=== PATIENT | male | born 1965 | race Caucasian/White ===

== ENCOUNTER 2017-05-13 18:13 | Inpatient (IN) | payer OTHER, MEDICARE ==
[~2017-05-13] VITALS: Ht 188 cm; Wt 142.9 kg
[~2017-05-13 18:13] MED LIST: ASPIRIN325 PO; CENTRUM SILVER1 EAC2 PO; FARXIGA5 MG PO; HYDROCHLOROTHIA25 M1 PO; HYDROCODONE-AP1 EAC6 PO; LIPITOR 20 MG T20 M1 PO; LISINOPRIL20 MG PO; METFORMIN HCL500 MG PO; NAPROSYN500 M1 PO; PROPAFENONE 15150 MG PO; XARELTO20 MG PO
[2017-05-13 18:53] LABS: ABSOLUTE BASOPHILS 0.1 thou/uL (0.0-0.2); ABSOLUTE EOSINOPHILS 0.2 thou/uL (0.0-0.7); ABSOLUTE MONOCYTES 1.1 thou/uL (0.0-1.2); ABSOLUTE NEUTROPHILS 6.2 thou/uL (1.6-8.1); BASOPHILS 1.1 %; EOSINOPHILS 1.5 %; HEMATOCRIT 50.3 % (42.0-52.0); HEMOGLOBIN 16.6 gm/dL (14.0-18.0); LYMPHOCYTES 28.6 %; MCH 30.6 pg (26.0-34.0); MCHC 33.1 g/dL (28.0-37.0); MCV 92.5 fL (80.0-100.0); MONOCYTES 10.7 %; MPV 8.5 fl. (7.2-11.1); NUCLEATED RBCS 0 /100WBC; PLATELET COUNT* 241 thou/uL (150-400); POLYS 58.1 %; RBC 5.44 mil/uL (4.50-6.00); RDW-CV 13.9 % (10.5-14.5); WBC 10.6 thou/uL (4.0-11.0)
[2017-05-13 19:02] LABS: ANION GAP 7 mmol/L (7-16); BUN 14 mg/dL (7-18); CALCIUM 9.1 mg/dL (8.5-10.1); CHLORIDE 101 mmol/L (98-107); CO2 31 mmol/L (21-32); CREATININE 0.8 mg/dL (0.6-1.3); GLUCOSE 130 mg/dL (70-99); POTASSIUM 4.3 mmol/L (3.5-5.1); SODIUM 139 mmol/L (136-145)
[2017-05-13 19:03] LABS: APTT 30.1 Seconds (25.0-31.3); INR 1.1
[2017-05-13 19:18] LABS: ALBUMIN 3.7 g/dL (3.4-5.0); ALKALINE PHOSPHATASE 67 U/L (46-116); CK-MB MASS 2.4 ng/mL (<0.5-3.6); LIPASE 177 U/L (73-393); MAGNESIUM 1.8 mg/dL (1.8-2.4); NT-PRO BRAIN NAT PEPTIDE 90 pg/mL (<300); SGOT 20 U/L (15-37); SGPT 40 U/L (30-65); TOTAL BILIRUBIN 0.7 mg/dL (<0.1-1.0); TOTAL PROTEIN 7.6 g/dL (6.4-8.2); TROPONIN-I LEVEL <0.06 ng/mL (<0.06)
[2017-05-13 21:35] VITALS: BP 105/63
[2017-05-13 22:04] VITALS: BP 134/79
[2017-05-13 23:51] VITALS: BP 108/73
[2017-05-14 02:07] LABS: ABSOLUTE EOSINOPHILS 0.2 thou/uL (0.0-0.7); ABSOLUTE LYMPHOCYTES 3.6 thou/uL (0.8-5.3); ABSOLUTE MONOCYTES 1.2 thou/uL (0.0-1.2); ABSOLUTE NEUTROPHILS 5.9 thou/uL (1.6-8.1); BASOPHILS 0.4 %; EOSINOPHILS 1.6 %; HEMATOCRIT 46.3 % (42.0-52.0); HEMOGLOBIN 15.3 gm/dL (14.0-18.0); MCH 30.8 pg (26.0-34.0); MCHC 33.1 g/dL (28.0-37.0); MONOCYTES 10.8 %; MPV 8.8 fl. (7.2-11.1); NUCLEATED RBCS 0 /100WBC; PLATELET COUNT* 212 thou/uL (150-400); POLYS 54.2 %; RBC 4.98 mil/uL (4.50-6.00); RDW-CV 14.1 % (10.5-14.5); WBC 10.9 thou/uL (4.0-11.0)
[2017-05-14 02:08] LABS: CALCIUM 8.5 mg/dL (8.5-10.1); CREATININE 0.9 mg/dL (0.6-1.3); POTASSIUM 3.8 mmol/L (3.5-5.1)
[2017-05-14 04:22] VITALS: BP 101/73
[2017-05-14 08:10] VITALS: BP 118/71
[2017-05-14 10:30] VITALS: BP 109/77
[2017-05-14 12:13] VITALS: BP 103/90
[2017-05-14 16:00] VITALS: BP 109/77
--- NOTE | 2017-05-14 16:23 | EKG ---
[place] [address] ELECTROCARDIOGRAM REPORT Name: SIRI ISAACS Room: [address] ADM IN .R.#: [id number] Admission: 05/13/17 Attend Phys: Armin Baron MD Discharge: Date of : 63 Report #: [id number] THIS REPORT FOR: //name// [facility] ED Test Date: 2017-05-13 Test Time: 18:18:38 Pat Name: SIRI ISAACS Department: Room: [facility] Gender: M Call Out Operator: DAINEL : 1965 Requested By: Bang Coreas Order Number: [id number] MD: Desean Morocho Measurements Intervals Gerber Rate: 151 P: NE: QRS: 51 QRSD: 90 T: 115 QT: 298 QTc: 473 Interpretive Statements Atrial fibrillation Nonspecific St and T-wave abnormalities Baseline wander in lead(s) V1,V2 Compared to ECG 03/29/2017 08:46:51 Sinus rhythm no longer present Electronically Signed On 05-14-2017 16:23:16 MEDICAL LABORATORY TECHNICAL OFFICER by Desean Morocho [email or web address] <ELECTRONICALLY SIGNED> By: Desean Morocho MD, FACC 05/14/17 1623 1818 1818 Desean oMrocho MD, FAC /EPI
[2017-05-14 19:45] VITALS: BP 113/79
[2017-05-15] VITALS: BP 101/62
[2017-05-15 03:50] VITALS: BP 118/80
[2017-05-15 05:33] LABS: ABSOLUTE BASOPHILS 0.1 thou/uL (0.0-0.2); ABSOLUTE EOSINOPHILS 0.1 thou/uL (0.0-0.7); ABSOLUTE LYMPHOCYTES 2.6 thou/uL (0.8-5.3); ABSOLUTE MONOCYTES 1.2 thou/uL (0.0-1.2); ABSOLUTE NEUTROPHILS 6.4 thou/uL (1.6-8.1); BASOPHILS 0.6 %; EOSINOPHILS 1.1 %; HEMATOCRIT 48.7 % (42.0-52.0); HEMOGLOBIN 16.5 gm/dL (14.0-18.0); LYMPHOCYTES 25.3 %; MCH 31.2 pg (26.0-34.0); MCHC 33.8 g/dL (28.0-37.0); MCV 92.1 fL (80.0-100.0); MONOCYTES 11.8 %; MPV 8.4 fl. (7.2-11.1); NUCLEATED RBCS 0 /100WBC; PLATELET COUNT* 223 thou/uL (150-400); POLYS 61.2 %; RBC 5.29 mil/uL (4.50-6.00); RDW-CV 13.6 % (10.5-14.5); WBC 10.4 thou/uL (4.0-11.0)
[2017-05-15 05:52] LABS: ALBUMIN 3.2 g/dL (3.4-5.0); CALCIUM 8.3 mg/dL (8.5-10.1); POTASSIUM 4.3 mmol/L (3.5-5.1); TOTAL BILIRUBIN 0.8 mg/dL (<0.1-1.0); TOTAL PROTEIN 6.3 g/dL (6.4-8.2)
[2017-05-15 08:00] VITALS: BP 114/89
--- NOTE | 2017-05-15 08:59 | CON ---
[address] [address] CONSULTATION Name: SIRI ISAACS Room: [address] IN M.R.#: [id number] Admission: 05/13/17 Attend Phys: Armin Baron MD Discharge: Date of : 63 Report #: [id number] THIS REPORT FOR: //name// CC: Armin Phan DO CARDIOLOGY CONSULTATION INDICATION: Recurrent atrial arrhythmias. HISTORY OF PRESENT ILLNESS: The patient is a very pleasant 51-year-old gentleman with a history of paroxysmal atrial fibrillation. He was recently seen in the hospital, at which time, he converted with a single bolus of 600 mg of propafenone. He had been off of his antiarrhythmics for some time and was placed on 150 mg 3 times daily. He presents today with recurrence of his atrial fibrillation with rapid ventricular response rate. With a diltiazem drip, he has achieved some modest rate control, but remains in atrial fibrillation/flutter. He is without chest pain. He is not having any significant shortness of breath. PAST MEDICAL HISTORY: 1. Paroxysmal atrial fibrillation. 2. Hypertension. 3. Type 2 diabetes mellitus. 4. Arthritis. PAST SURGICAL HISTORY: 1. Right knee reconstruction. 2. Left shoulder surgery. 3. Lumbar fusion. 4. C-spine fusion. 5. Appendectomy. FAMILY HISTORY: The patient's father of heart failure and an enlarged heart at age 61. The patient's mother has had bypass surgery. SOCIAL HISTORY: The patient is . He does not smoke. He does not drink alcohol. ALLERGIES: None documented. HOME MEDICATIONS: Aspirin 325 mg daily, Farxiga 5 mg daily, hydrochlorothiazide 25 mg daily, hydrocodone/acetaminophen 5/325 q. 6 hours p.r.n., lisinopril 20 mg daily, metformin 500 mg b.i.d., Centrum Silver Ultra Men's multivitamin 1 tablet daily, Naprosyn 500 mg b.i.d. p.r.n., propafenone 150 mg p.o. t.i.d. and Xarelto 20 [place] [address] CONSULTATION Name: SIRI ISAACS Room: [address]#: [id number] Admission: 05/13/17 Attend Phys: Armin Baron MD Discharge: Date of : 63 Report #: [id number] REVIEW OF SYSTEMS: He reports a remote history of pneumonia. He has palpitations. He denies chest discomfort. He has some mild dyspnea on exertion, but no orthopnea or paroxysmal nocturnal dyspnea. He has arthritis, without connective tissue diseases. He wears glasses. He has no acute visual change. Otherwise, 14-point review of systems is unremarkable. PHYSICAL EXAMINATION: VITAL SIGNS: Stable. Blood pressure 103/90, pulse rate is in the 130s and irregular. GENERAL: This is a pleasant gentleman who is in no distress. Mood and affect appropriate. HEENT: The patient is wearing glasses. Extraocular muscles intact. Mucous membranes are moist. NECK: Examination of the neck shows no jugular venous distention. There are no carotid bruits. CHEST: Examination of the chest reveals clear lung damon, without wheezes, rales or rhonchi. CARDIOVASCULAR EXAMINATION: Reveals an irregular rhythm that is tachycardic. I do not appreciate obvious gallop or murmur. ABDOMEN: Examination of the abdomen reveals normal bowel sounds. The abdomen is soft and nontender. EXTREMITIES: Examination of the extremities shows no edema. Peripheral pulses are 2+ and easily palpable. SKIN: Warm and dry. LABORATORY DATA: A 12-lead EKG shows atrial fibrillation with rapid ventricular response. IMPRESSION AND RECOMMENDATIONS: 1. Recurrent atrial fibrillation. The patient is therapeutically anticoagulated on Xarelto 20 mg daily. At this point in time, I will be re-bolus with propafenone and increase his daily dose to 225 mg 3 times daily. Hopefully, this will achieve cardioversion. Continue Xarelto 20 mg daily. 2. Hypertension. Blood pressure adequately controlled on current cardiac regimen. 3. Type 2 diabetes mellitus, per primary physician. <ELECTRONICALLY SIGNED> By: Desean Morocho MD, FACC 05/15/17 0859 [id number] [id number] Morocho MD, FACC /nt
[2017-05-15] MEDS ORDERED: PROPAFENONE 15150 MG PO (09:00)
[2017-05-15 09:14] VITALS: BP 114/89
[2017-05-15 12:00] VITALS: BP 106/66
--- NOTE | 2017-05-15 13:10 | EKG ---
[place] [address] ELECTROCARDIOGRAM REPORT Name: SIRI ISAACS Room: [address] ADM IN M.R.#: [id number] Admission: 05/13/17 Attend Phys: Armin Baron MD Discharge: Date of : 63 Report #: [id number] THIS REPORT FOR: //name// [facility] Test Date: 2017-05-15 Test Time: 06:44:37 Pat Name: SIRI ISAACS Department: Room: [address] Gender: M Director Of Engineering: MARY : 1965 Requested By: Armin Baron Order Number: [id number] Nestor MD: Matthew Sharpe Measurements Intervals Jerome Rate: 75 P: 63 NM: 172 QRS: 35 QRSD: 108 T: 87 QT: 406 QTc: 454 Interpretive Statements Sinus rhythm Baseline wander in lead(s) V2 Compared to ECG 05/13/2017 18:18:38 Atrial fibrillation no longer present Electronically Signed On 05-15-2017 13:10:10 PLASTIC MOULD MAKER by Matthew Sharpe [email or web address] <ELECTRONICALLY SIGNED> By: Matthew Sharpe MD, [facility] 05/15/17 1310 0644 0644 Matthew Sharpe MD, [facility] /EPI
[2017-05-15 13:47] VITALS: BP 106/66
== END 2017-05-15 13:55 | disposition home or self-care (01) | DRG 309 ==
LOC: M.ERS 18:13 → M.2W 18:51 → M.TBA-ER 18:51 → M.2W 20:15
PROVIDERS: Emergency Medicine Emergency Medical Services; ADMIT Internal Medicine
DX: I48.0 Paroxysmal atrial fibrillation (principal); E11.9 Type 2 diabetes mellitus without complications; I10 Essential (primary) hypertension; E66.01 Morbid (severe) obesity due to excess calories; Z79.82 Long term (current) use of aspirin; M19.90 Unspecified osteoarthritis, unspecified site; Z90.49 Acquired absence of other specified parts of digestive tract; Z68.41 Body mass index [BMI] 40.0-44.9, adult; Z79.899 Other long term (current) drug therapy; Z82.49 Family history of ischemic heart disease and other diseases of the circulatory system